=== PATIENT | female | born 1940 | race Caucasian/White ===

== ENCOUNTER 2019-03-19 12:43 | Emergency (ER) | payer MEDICARE, OTHER ==
[~2019-03-19] VITALS: Ht 167.6 cm; Wt 63.5 kg
[2019-03-19] MEDS ORDERED: SIMVASTATIN10 MG PO (13:28)
== END 2019-03-19 14:18 | disposition home or self-care (01) ==
LOC: ED 12:43
DX: S01.112A Laceration without foreign body of left eyelid and periocular area, initial encounter (principal); Z79.899 Other long term (current) drug therapy; W01.0XXA Fall on same level from slipping, tripping and stumbling without subsequent striking against object, initial encounter
CPT/HCPCS: 12011; 90471; 90715; 99282-25